=== PATIENT | male | born 1945 | race Caucasian/White ===

== ENCOUNTER 2019-02-19 04:49 | Emergency (ER) | payer MEDICARE ==
[2019-02-19 05:59] LABS: ALT (SGPT) Less than 7 U/L (8-55); AST (SGOT) 9 U/L (5-34); Albumin 3.5 g/dL (3.4-4.8); Alkaline Phosphatase 140 U/L (40-150); Anion Gap 14 mmol/L (10-20); BUN (Urea Nitrogen) 20 mg/dL (8.4-25.7); Bilirubin, Total 0.3 mg/dL (0.2-1.2); Calc. Creatinine Clearance 0 mL/min (70-130); Calcium 8.7 mg/dL (7.8-10.44); Carbon Dioxide 24 mmol/L (23-31); Chloride 98 mmol/L (98-107); Estimated GFR-MDRD 61; Globulin 3.5 g/dL (2.4-3.5); Glucose 200 mg/dL (83-110); Potassium 4.1 mmol/L (3.5-5.1); Sodium 132 mmol/L (136-145)
[2019-02-19 06:16] LABS: #Lymphocytes 2.6 thou/uL (1.20-3.40); #Monocytes 0.8 thou/uL (0.11-0.59); #Neutrophils 5.4 thou/uL (1.40-6.50); %Basophils 0.5 % (0.0-1.0); %Eosinophils 0.6 % (0.0-10.0); %Lymphocytes 29.1 % (21.0-51.0); %Monocytes 9.1 % (0.0-10.0); %Neutrophils 60.8 % (42.0-75.0); Hemoglobin 14.1 g/dL (14.0-18.0); Mean Corpuscular HGB CONC 33.6 g/dL (32.0-36.0); Mean Corpuscular Hemoglobin 27.7 pg (27.0-31.0); Mean Corpuscular Volume 82.3 fL (78.0-98.0); Mean Platelet Volume 7.4 fL (7.4-10.4); Platelet Count 318 thou/uL (130-400); RBC Distribution Width 13.2 % (11.5-14.5); Red Blood Cell (RBC) Count 5.09 mill/uL (4.70-6.10); White Blood Cell (WBC) Count 8.9 thou/uL (4.8-10.8)
[2019-02-19] MEDS ORDERED: Magnesium Citrate 300 ML BOT ONE (06:21)
--- NOTE | 2019-02-19 07:49 | RAD ---
XR Abdomen 2 View/1 View Cxr HISTORY: Constipation COMPARISON: 01/20/2013 FINDINGS: Changes of median sternotomy are again seen. The heart size is normal. The aorta is tortuou s. The lungs are well expanded without focal areas of consolidation, pneumothoraces or pleural effusions. No free air or differential fluid levels are seen. The bowel gas pattern is unremarkable. There is fe mellissa material in the colon. There are degenerative changes in the spine. No suspicious calcifications are identified.
== END 2019-02-19 06:45 | disposition home or self-care (01) ==
LOC: ERS 04:49
DX: K59.00 Constipation, unspecified (principal); E11.9 Type 2 diabetes mellitus without complications; Z79.899 Other long term (current) drug therapy
CPT/HCPCS: 74022; 80053; 85025; 93005; 96360

== ENCOUNTER 2019-04-11 13:33 | Inpatient (IN) | payer MEDICARE ==
[~2019-04-11 13:33] MED LIST: ISOVUE-370 76%-LOCM 1 ML ONE
[2019-04-11] MEDS ORDERED: Piperacillin/Tazobactam 4.5 GM VIAL ONE (14:22)
[2019-04-11] MEDS ORDERED: Sodium Chloride 0.9% 100 ML ONE (14:23)
[2019-04-11 14:27] LABS: #Basophils 0.2 thou/uL (0.0-0.2); #Lymphocytes 4.4 thou/uL (1.20-3.40); #Monocytes 0.9 thou/uL (0.11-0.59); #Neutrophils 9.2 thou/uL (1.40-6.50); %Basophils 1.5 % (0.0-1.0); %Eosinophils 0.2 % (0.0-10.0); %Lymphocytes 30.1 % (21.0-51.0); %Neutrophils 62.3 % (42.0-75.0); Hemoglobin 13.8 g/dL (14.0-18.0); Mean Corpuscular HGB CONC 33.5 g/dL (32.0-36.0); Mean Corpuscular Hemoglobin 26.6 pg (27.0-31.0); Mean Corpuscular Volume 79.4 fL (78.0-98.0); Mean Platelet Volume 7.2 fL (7.4-10.4); Platelet Count 426 thou/uL (130-400); RBC Distribution Width 14.9 % (11.5-14.5); Red Blood Cell (RBC) Count 5.17 mill/uL (4.70-6.10); White Blood Cell (WBC) Count 14.8 thou/uL (4.8-10.8)
[2019-04-11 14:39] LABS: ALT (SGPT) 7 U/L (8-55); AST (SGOT) 18 U/L (5-34); Albumin 3.5 g/dL (3.4-4.8); Alkaline Phosphatase 125 U/L (40-150); Anion Gap 19 mmol/L (10-20); BUN (Urea Nitrogen) 29 mg/dL (8.4-25.7); Bilirubin, Total 0.8 mg/dL (0.2-1.2); CK (CPK) 28 U/L (30-200); Calc. Creatinine Clearance 0 mL/min (70-130); Calcium 9.1 mg/dL (7.8-10.44); Carbon Dioxide 18 mmol/L (23-31); Chloride 93 mmol/L (98-107); Estimated GFR-MDRD 53; Globulin 3.6 g/dL (2.4-3.5); Glucose 239 mg/dL (83-110); Protein, Total 7.1 g/dL (5.8-8.1); Sodium 126 mmol/L (136-145)
[2019-04-11 14:53] LABS: CKMB 0.9 ng/mL (0-6.6)
[2019-04-11 15:00] LABS: Bilirubin Negative (Negative); Blood, Urine Trace (Negative); Clarity CLEAR (Clear); Glucose, Urine (Dipstick) Negative (Negative); Leukocyte Small (Negative); Nitrite Negative (Negative); Protein, Urine (Dipstick) Negative (Neg-Trace); Specific Gravity, Urine 1.005 (1.002-1.036); Urobilinogen 0.2 mg/dL (0.2-1.0)
[2019-04-11 15:01] LABS: Bacteria/HPF None Seen HPF (None Seen); Hyaline Casts/LPF 7-10 HYALINE CAST LPF (0-3 Hyaline); Pathc Cast-AUWi Flag 0.95 (0-2.49); RBC/HPF 0-3 HPF (0-3); Squamous Epithelial 0-3 HPF (0-3)
--- NOTE | 2019-04-11 15:19 | RAD ---
SINGLE VIEW OF THE CHEST: COMPARISON: 06/27/2012. HISTORY: Altered mental status. FINDINGS: A single view of the chest shows a normal cardiomediastinal silhouette. The patient is status post s ternotomy. There is no evidence of consolidation, mass, or pleural effusion. IMPRESSION: No evidence of acute cardiopulmonary disease. POS: [facility]
--- NOTE | 2019-04-11 15:39 | ULT ---
US Venous Doppler Bilat History: [Lower extremity edema.] Comparison: None. Findings: Real-time grayscale, color, and spectral analysis of the bilateral lower extremity venous s ystem was performed. The common femoral, femoral, proximal portions greater saphenous and deep femoral veins as well as the popliteal and posterior tibial veins were interrogated. Right lower extremity venous system has normal flow, compression, and augmentation. There is a marked ly abnormal lymph nodes of the left groin measuring up to 4.2 cm in size with abnormal hypoattenuation of the cortex. Complete absence of left groin darrell fatty hilum. There is occlusive thrombus within the left common femoral, femoral, popliteal vein. Moderate lower e xtremity edema on the left. Impression: 1. Occlusive deep venous thrombosis left lower extremity. 2. Markedly abnormal left groin lymph nodes. Lower extremity CT or MRI may be beneficial to evaluate for underlying metastatic disease.
[2019-04-11] MEDS ORDERED: Enoxaparin Sodium 80 MG/0.8 ML SYRINGE ONE (17:41)
[2019-04-11 18:34] LABS: Lactic Acid 2.4 mmol/L (0.5-2.2)
[2019-04-11 18:46] LABS: Troponin I 0.074 ng/mL (< 0.028)
[2019-04-11] MEDS ORDERED: Acetaminophen 325 MG TAB PO PRN (18:46)
[2019-04-11] MEDS ORDERED: Ondansetron PF 4 MG/2 ML Vial IVP PRN (18:46)
[2019-04-11] MEDS ORDERED: Dextrose 5% in Water 1,000 ML IV PRN (18:46)
[2019-04-11] MEDS ORDERED: Dextrose 50% Abboject 50 ML SYRINGE SLOW IVP PRN (18:46)
[2019-04-11] MEDS ORDERED: HumaLOG 300 UNITS/3 ML VIAL SC PRN (18:46)
[2019-04-11] MEDS ORDERED: cloNIDine 0.1 MG TAB PO PRN (18:46)
[2019-04-11] MEDS ORDERED: Vancomycin HCl 1 GM in Premix Bag 1 BAG IVPB SCH (21:00)
[2019-04-11] MEDS: Sodium Chloride 0.9% 1,000 ML IV SCH (21:39)
--- NOTE | 2019-04-11 21:41 | CT ---
CT THORAX WITH CONTRAST CT ABDOMEN WITH CONTRAST CT PELVIS WITH CONTRAST: DATE: 04/11/2019 HISTORY: 73-year-old male with inguinal lymphadenopathy and DVT. Possible sepsis. Possible lymphoma. TECHNIQUE: IV iodinated contrast media: Administered Oral contrast media: Not administered Single phase scans of thorax, abdomen, and pelvis. COMPARISON: 01/20/2013 FINDINGS: All of the following findings are new since the prior CT: Bulky conglomeration of matted malignant periaortic retroperitoneal lymph nodes, circumferentially co mpletely encasing the entire infrarenal abdominal aorta from slightly superior to left renal artery down into the bilateral common iliac arteries level. The circumferential periaortic component measure s 9 cm transverse x 4 cm AP x 14 cm craniocaudal. Left-sided lymphadenopathy encases and follows the left common iliac artery and vein, and the left ex ternal iliac artery and vein, until it reaches the left groin, where there is a large conglomeration of matted left inguinal lymph node mass measuring 5 x 5.5 x 9.5 cm. Some of the left matted confluence lymphadenopathy follows the left internal iliac artery and vein, i nto the left obturator internus lymph node region. The inferior vena cava is also encased by the retroperitoneal tumor. It is not opacified with IV cont rast. It is uncertain whether this is not opacification represents unopacified blood or complete thrombosis. There is mixed opacified and unopacified material involving the intrahepatic segment of t he inferior vena cava. The left-sided retroperitoneal and periaortic tumor apparently obstructs the left ureter, because the re is a new finding of moderate dilation of the left renal pelvis and left calyces. There is an irregularly-shaped 7 x 6 x 4 mm calculus in the posterior, dependent portion of the dilated left extr arenal pelvis. This is currently not causing obstruction, but could potentially produce a future. No major pathology of liver, adrenals, pancreas, or spleen. Lui catheter within a collapsed urinary bladder that has diffuse mural thickening and mural edema. Soft tissue edema, anasarca, in the subcutaneous fat superficial to the left hip, extending into the left flank. No ascites, small bowel dilation, colonic diverticulitis, or pneumoperitoneum. No destructive osseous lesion identified. IMPRESSION: 1) malignant, bulky, confluent, matted lymphadenopathy involving circumaortic retroperitoneal tumor m ass extending into left iliac chain lymphadenopathy tumor mass extending into left inguinal lymphadenopathy tumor mass. One possibility is lymphoma. 2) this is apparently occluding the left iliac veins. Uncertain whether inferior vena cava is also th rombosed and occluded. 3) this is causing left obstructive uropathy: Moderate left hydronephrosis. 4) unrelated to this, there is a 7 mm calculus which is currently not obstructing, within the dilated left renal pelvis.
[2019-04-11] MEDS: Famotidine 20 MG TAB PO SCH (21:44)
[2019-04-11 22:28] LABS: Troponin I 0.081 ng/mL (< 0.028)
[2019-04-11] MEDS: Piperacillin/Tazobactam 3.375 GM in Sodium Chloride 0.9% 100 ML IVPB SCH (23:55)
--- NOTE | 2019-04-12 00:16 | HP ---
PRIMARY CARE PHYSICIAN: The patient does not have a primary care physician. CHIEF COMPLAINT: Altered mental status. HISTORY OF PRESENT ILLNESS: Mr. Mcdermott is a 73-year-old gentleman, who has a history of coronary artery disease and hypertension. The history is taken from the patient's son who is at the bedside about half of it and the remaining half is taken from the patient himself. His son starts off by telling me that his father has had a slow decline ever since 2012. It started about 6 months after he had bypass surgery and it seems after that he basically just shut down. He stopped driving and shortly after that he even stopped bathing. The children bought him a condo and made sure that he had food delivered to them either by themselves or by other family and his son would come in once a week to bathe him and check on him. He says that on Sunday, he came to check on him recently and noticed that his pants were soaked in urine and he was sitting in the chair and was basically indifferent. They also say that he has basically lost his appetite and stopped eating. They said that he also has developed bedsores as well. The patient himself says that he basically wants to . He says that he is not suicidal, but says that he has basically lost the ability to do everything that he was interested in. He even tells me multiple times to just pray for him to tonight. He says that he also has had a little bit of shortness of breath off and on. He denies having any pain when he swallows. He says he does get full faster. When asked about the swelling in his left leg, he says it is about the same as it always has been. He denies having any pain in the legs. He denies any chest pain. He denies any fevers, chills. He also says he has had some constipation, but no blood in the stools or hematemesis. REVIEW OF SYSTEMS: CONSTITUTIONAL: There have been no fevers or chills, no night sweats. He has had some 15-pound weight loss and decreased appetite. HEENT: He denies any headache. No dizziness. No visual changes. No sore throat, rhinorrhea, neck pain. No adenopathy. PULMONARY: No hemoptysis. No cough. No wheezing. CARDIOVASCULAR: He denies any chest pain. He has had some dyspnea off and on, but he says it has been stable. No wheezing. No PND. No orthopnea. GASTROINTESTINAL: No abdominal pain. No nausea. No vomiting. He does admit to early satiety. He has had some constipation in the last few days. GENITOURINARY: He admits to loss of urinary control and says that when he feels the urge to go, he has only seconds and then it will just go. There is no dysuria. No hematuria. MUSCULOSKELETAL: He says his legs have given out, he cannot even remember when. He denies any leg pain, but has swelling in the left lower extremity. SKIN AND INTEGUMENT: He denies any skin changes. No rash. PSYCHIATRIC: The patient says that he just basically wants to . He says he is not suicidal. He says he has no ability to do what he used to do. When asked, he does not want to be on antidepressant medications and says that this is not depression. He says that he just does not want to live like this anymore. PAST MEDICAL HISTORY: Significant for coronary artery disease, hypertension, and diabetes mellitus type 2. PAST SURGICAL HISTORY: He has had bypass surgery back in 2011, hemorrhoidectomy. ALLERGIES: TALWIN (PENTAZOCINE). SOCIAL HISTORY: He is . He is a nonsmoker and nondrinker. His son, Howie, is his surrogate medical decision maker. He would not want to be resuscitated. He wants to be a DNR. FAMILY HISTORY: No history of any heritable diseases. MEDICATIONS: None. PHYSICAL EXAMINATION: GENERAL: He is alert and oriented. He is in no acute distress. He is a bit cachectic with some temporal muscle wasting and chronically ill in appearance. VITAL SIGNS: His blood pressure 127/92, heart rate 105, respiratory rate of 26, temperature is 98. HEENT: Pupils are equal, round, and reactive. Extraocular muscles are intact. His sclerae are anicteric. His tympanic membranes are fairly ly. There is no fluid behind the drums. No redness. He does have some again temporal muscle wasting. Throat, he has poor dentition. There is no erythema. NECK: There is no adenopathy, but he did have a bruit on the right. Pulmonary: He has no wheezing, no rales, no rhonchi, and good breath sounds bilaterally. CARDIOVASCULAR: He has a normal S1, S2. He has an intermittent S3 gallop as well as a soft diastolic murmur heard at the base as well as along the upper left sternal border. ABDOMEN: Obese. It is soft. It is nontender, nondistended. Positive for bowel sounds. No rebound. No guarding. No appreciable organomegaly. EXTREMITIES: He has extensive edema up to the groin on the left lower extremity. He has also fairly large lymph nodes in both the left and the right groin as well as some chronic venous stasis changes. NEUROLOGIC: He is moving all of his extremities. SKIN AND INTEGUMENT: He has some mycotic nails as well as some scaling of the skin bilaterally and also has a decubitus on the buttocks which is reported to be a stage II. LABORATORY DATA: White blood cell count 14.8, hemoglobin 13.8, hematocrit is 41, platelet count is 426. His sodium is 126, potassium 4.0, chloride is 93, CO2 is 18, BUN of 29, creatinine 1.32, glucose is 239. Lactic acid is 4.8. Troponin is 0.040. Urinalysis was essentially negative. He had a venogram which showed a deep vein thrombosis in the left. He had a chest x-ray, which was positive for some mild cardiomegaly. Sternal wires are appreciable, but no pulmonary infiltrates or effusions and this is by my reading. ASSESSMENT: This is a pleasant 73-year-old gentleman, who essentially has failure to thrive, but was found to have a deep venous thrombosis as well as evidence for sepsis, as well as hyponatremia and inguinal adenopathy. 1. For deep vein thrombosis, he has already been given a dose of Lovenox. This will need to be dosed for his renal insufficiency. We will also consider getting either a CT scan in the a.m. if his renal function improves or V/Q scan to determine if he has a pulmonary embolus as well. 2. Sepsis. He meets criteria with elevated white blood cell count and tachycardia as well as an elevated lactic acid. He will be placed on empiric antibiotics and it is suspected that the decubitus could be the source. 3. Hyponatremia. I suspect this is due to poor oral intake and dehydration. He will be started on IV hydration and if this does not improve, then we will get urine and serum osmolality to help to differentiate the cause. 4. Inguinal adenopathy. We will follow up with a CT scan of the abdomen. This will need to be noncontrast to see if he has any bulky abdominal or pelvic adenopathy and further recommendations to follow. These may be superficial enough to be safely biopsied possibly by General Surgery. 5. Diabetes mellitus. He will be placed on a sliding scale insulin for this. 6. Abnormal heart murmur and history of coronary artery disease. We will get an echocardiogram to help assess this. Further recommendations to follow. Job ID: [id number]
[2019-04-12 01:38] LABS: #Basophils 0.1 thou/uL (0.0-0.2); #Eosinphils 0.1 thou/uL (0.0-0.7); #Lymphocytes 3.5 thou/uL (1.20-3.40); #Neutrophils 8.2 thou/uL (1.40-6.50); %Basophils 1.1 % (0.0-1.0); %Eosinophils 0.4 % (0.0-10.0); %Lymphocytes 27.5 % (21.0-51.0); %Monocytes 7.4 % (0.0-10.0); %Neutrophils 63.6 % (42.0-75.0); Hemoglobin 13.7 g/dL (14.0-18.0); Mean Corpuscular HGB CONC 33.8 g/dL (32.0-36.0); Mean Corpuscular Hemoglobin 26.7 pg (27.0-31.0); Platelet Count 351 thou/uL (130-400); Red Blood Cell (RBC) Count 5.11 mill/uL (4.70-6.10); White Blood Cell (WBC) Count 12.8 thou/uL (4.8-10.8)
[2019-04-12 02:26] LABS: Lactic Acid 3.8 mmol/L (0.5-2.2)
[2019-04-12 02:39] LABS: Anion Gap 20 mmol/L (10-20); BUN (Urea Nitrogen) 20 mg/dL (8.4-25.7); Calc. Creatinine Clearance 69 mL/min (70-130); Calcium 8.8 mg/dL (7.8-10.44); Carbon Dioxide 18 mmol/L (23-31); Chloride 101 mmol/L (98-107); Estimated GFR-MDRD 73; Glucose 134 mg/dL (83-110); Potassium 3.6 mmol/L (3.5-5.1); Sodium 135 mmol/L (136-145)
[2019-04-12] MEDS: Piperacillin/Tazobactam 3.375 GM in Sodium Chloride 0.9% 100 ML IVPB SCH ×4 (05:45→23:12)
[2019-04-12] MEDS ORDERED: Enoxaparin Sodium 80 MG/0.8 ML SYRINGE SC SCH (09:00)
[2019-04-12] MEDS ORDERED: Boudreaux's Butt Paste 16% Oin 30 GM TUBE TOP PRN (09:42)
[2019-04-12] MEDS ORDERED: Boudreaux's Butt Paste 60 GM TUBE TOP PRN (10:00)
[2019-04-12] MEDS: Sodium Chloride 0.9% 1,000 ML IV SCH ×2 (10:06→23:13)
[2019-04-12] MEDS: Famotidine 20 MG TAB PO SCH ×2 (10:07→20:45)
[2019-04-12] MEDS ORDERED: Vancomycin HCl 1 GM in Premix Bag 1 BAG IVPB SCH (16:00)
[2019-04-12] MEDS ORDERED: CEFAZOLIN 2 GM in Premix Bag 1 BAG IVPB SCH (17:00)
--- NOTE | 2019-04-12 17:04 | PDOC.PN ---
- Subjective Encounter Start Date: 04/12/19 Encounter Start Time: 14:00 Mr. Mcdermott was seen today in follow-up of DVT, and adenopathy. He does not have any complaints other than he had an incomplete bowel movement. - Objective Resuscitation Status - Order Detail: 04/11/19 18:13 Resuscitation Status Routine Resuscitation Status: DNAR: NO Resuscitation Discussed with: discussed with the patient MAR Reviewed: Yes Vital Signs & Weight: Vital Signs (12 hours) Temp Pulse Resp BP Pulse Ox 04/12/19 15:52 97.6 F 111 H 18 130/79 97 04/12/19 12:10 98.6 F 99 18 115/62 98 04/12/19 08:50 98.3 F 82 18 131/74 97 Weight Admit Weight 162 lb 11.2 oz Weight 164 lb 3.2 oz I&O: 04/11/19 04/12/19 04/13/19 06:59 06:59 06:59 Intake Total 1445 240 Output Total 1800 600 Balance -355 -360 Result Diagrams: 04/12/19 00:58 04/12/19 00:58 Additional Labs: Accuchecks 04/12/19 04/12/19 04/12/19 16:43 10:50 05:30 POC Glucose 226 H 181 H 126 H 04/11/19 20:40 POC Glucose 144 H Phys Exam - Physical Examination HEENT: PERRLA Respiratory: no wheezing, no rales, no rhonchi, clear to auscultation bilateral Cardiovascular: RRR, no significant murmur, no rub Gastrointestinal: soft, non-tender, no distention, positive bowel sounds Musculoskeletal: pulses present, edema present + massive edema of the left lower edema Dx/Plan (1) Deep vein thrombosis (DVT) of left lower extremity Code(s): I82.402 - ACUTE EMBOLISM AND THOMBOS UNSP DEEP VEINS OF L LOW EXTREM Status: Acute (2) Inguinal adenopathy Code(s): R59.0 - LOCALIZED ENLARGED LYMPH NODES Status: Acute (3) Diabetes mellitus type 2 in nonobese Code(s): E11.9 - TYPE 2 DIABETES MELLITUS WITHOUT COMPLICATIONS Status: Acute (4) Sepsis Code(s): A41.9 - SEPSIS, UNSPECIFIED ORGANISM Status: Acute (5) Hyponatremia Code(s): E87.1 - HYPO-OSMOLALITY AND HYPONATREMIA Status: Acute - Plan * DVT- continue Lovenox * Sepsis- likely as a result of the decubitus in his gluteal area- continue Vancomycin and Zosyn * Hyponatremia- improved with hydration * DM- will continue SSI * Inguinal adenopathy- the resultsof the CT scan was noted- This was discussed with the patient and the patient's son at length. In order to be able to make an informed decision regarding treatment, the patient would like to proceed with obtaining a biopsy. Will consult General Surgery * Depression- the patient has refused medication, and says he is not depressed. .
--- NOTE | 2019-04-12 18:01 | CON ---
DATE OF CONSULTATION: HISTORY OF PRESENT ILLNESS: Emile Mcdermott is a 73-year-old DNR patient, whose is . He was admitted to the Hospitalist Service on 04/11/2019 yesterday, with complaints of altered mental status. He is found to have diffuse lymphadenopathy, deep venous thrombosis, hyponatremia. He underwent a CAT scan of the abdomen and pelvis yesterday noting lymphadenopathy including around the retroperitoneal tumor mass, iliac lymphadenopathy, extending to the left inguinal canal. He has an obstructive left uropathy from this. Left renal calculus. ALLERGIES: TALWIN. SOCIAL HISTORY: Tobacco, none. Alcohol, rarely. MEDICATIONS: None known. PAST SURGICAL HISTORY: Hemorrhoidectomy. PAST MEDICAL HISTORY: Discovered to have slightly elevated glucose on admission, obstructive uropathy and lymphadenopathy. He is a DNR. PHYSICAL EXAMINATION: VITAL SIGNS: Height 5 feet 7 inches, 164 pounds, BMI 25, 97.6, 111, 18, 130/79. HEAD, EARS, EYES, NOSE AND THROAT: Unremarkable. LUNGS: Clear to auscultation. CARDIAC: Regular rate and rhythm without murmur or gallop. ABDOMEN: Soft. He has a left axillary node. He has nodes in both his left and right groins, larger seems in his right groin. EXTREMITIES: Unremarkable. LABORATORY DATA: Sodium 135, potassium 3.6, glucose 134. White count 12.8, hemoglobin 13. ASSESSMENT: Lymphadenopathy. PLAN: 1. Excisional biopsy, right or left groin node, Sunday. He understands risks and benefits, consents. 2. Obstructive uropathy. Job ID: [id number]
[2019-04-12] MEDS: HumaLOG 300 UNITS/3 ML VIAL SC PRN (18:07)
[2019-04-12] MEDS: Enoxaparin Sodium 80 MG/0.8 ML SYRINGE SC SCH (20:45)
[2019-04-13] MEDS: Piperacillin/Tazobactam 3.375 GM in Sodium Chloride 0.9% 100 ML IVPB SCH ×3 (05:09→19:30)
[2019-04-13] MEDS: Famotidine 20 MG TAB PO SCH ×2 (09:04→20:44)
[2019-04-13] MEDS: Enoxaparin Sodium 80 MG/0.8 ML SYRINGE SC SCH ×2 (09:05→20:45)
[2019-04-13] MEDS: Boudreaux's Butt Paste 60 GM TUBE TOP SCH (09:06)
[2019-04-13] MEDS: Sodium Chloride 0.9% 1,000 ML IV SCH (12:52)
--- NOTE | 2019-04-13 13:45 | PDOC.PN ---
- Subjective Encounter Start Date: 04/13/19 Encounter Start Time: 13:42 Mr. Mcdermott was seen today in follow-up of DVT and Probable lymphoma. He does not have any new complaints this afternoon. - Objective Resuscitation Status - Order Detail: 04/11/19 18:13 Resuscitation Status Routine Resuscitation Status: DNAR: NO Resuscitation Discussed with: discussed with the patient MAR Reviewed: Yes Vital Signs & Weight: Vital Signs (12 hours) Temp Pulse Resp BP Pulse Ox 04/13/19 12:55 98.9 F 100 18 134/65 97 04/13/19 08:50 97.8 F 97 18 124/79 96 04/13/19 03:41 98.5 F 102 H 20 111/69 100 Weight Admit Weight 162 lb 11.2 oz Weight 170 lb 6.4 oz I&O: 04/12/19 04/13/19 04/14/19 06:59 06:59 06:59 Intake Total 1445 3970 720 Output Total 1800 2025 Balance -355 1945 720 Result Diagrams: 04/12/19 00:58 04/12/19 00:58 Additional Labs: Accuchecks 04/13/19 04/12/19 04/12/19 05:26 20:57 16:43 POC Glucose 113 H 125 H 226 H Phys Exam - Physical Examination HEENT: PERRLA Respiratory: no wheezing, no rales, no rhonchi, clear to auscultation bilateral Cardiovascular: RRR, no significant murmur, no rub Gastrointestinal: soft, non-tender, no distention, positive bowel sounds Musculoskeletal: pulses present, edema present + massive edema of the left lower extremity Dx/Plan (1) Deep vein thrombosis (DVT) of left lower extremity Code(s): I82.402 - ACUTE EMBOLISM AND THOMBOS UNSP DEEP VEINS OF L LOW EXTREM Status: Acute (2) Inguinal adenopathy Code(s): R59.0 - LOCALIZED ENLARGED LYMPH NODES Status: Acute (3) Diabetes mellitus type 2 in nonobese Code(s): E11.9 - TYPE 2 DIABETES MELLITUS WITHOUT COMPLICATIONS Status: Acute (4) Sepsis Code(s): A41.9 - SEPSIS, UNSPECIFIED ORGANISM Status: Acute (5) Hyponatremia Code(s): E87.1 - HYPO-OSMOLALITY AND HYPONATREMIA Status: Acute - Plan * DVT- will change to Eliquis * Patient was found to have severe systolic heart failure by Echo- this was discussed with the patient * He has decided to forego the biopsy, and opt for palliative care only * Will consult Palliative care and hospice
[2019-04-13 15:35] LABS: Vancomycin, Trough 10.1 ug/mL
[2019-04-13] MEDS ORDERED: Vancomycin HCl 1.5 GM in Sodium Chloride 0.9% 250 ML 300 ML IVPB SCH (16:00)
--- NOTE | 2019-04-13 17:45 | PDOC.EVN ---
Event Note - Event Note Event Note: After I saw Mr. Mcdermott and explained the results of his ECHO he made it known that he is not happy with his son's decision to proceed with aggressive care. He said he felt like all the healthcare providers are not " hearing him". He says that he just wants to leave the hospital, but knows that since he can not walk he cant do it, but if he was able to get up and walk he would be " out the door". I spoke with both of his sons, and discussed his prognosis. Now that it has been discovered that he has severe systolic heart failure, the patient has decided not to proceed with the lymph node biopsy, and he would like comfort measures only. His sons are also in agreement. Will consult palliative care and hospice. APC 30 minutes.
[2019-04-14] MEDS ORDERED: Piperacillin/Tazobactam 4.5 GM VIAL ONE (01:12)
[2019-04-14] MEDS: Piperacillin/Tazobactam 3.375 GM in Sodium Chloride 0.9% 100 ML IVPB SCH ×2 (01:16→05:17)
[2019-04-14] MEDS ORDERED: Sodium Chloride 0.9% 10 ML ONE (08:10)
[2019-04-14] MEDS: Ondansetron ODT 4 MG TAB PO PRN ×2 (08:32→16:48)
[2019-04-14] MEDS: HYDROcodone/Acetaminophen 5/325 mg Tablet PO PRN ×2 (08:34→16:49)
[2019-04-14] MEDS: Carvedilol 3.125 MG TAB PO SCH ×2 (08:36→16:48)
[2019-04-14] MEDS: Amoxicillin/Potassium Clav 875 MG TAB PO SCH ×2 (08:36→20:52)
[2019-04-14] MEDS: Apixaban 5 MG TAB PO SCH ×2 (08:37→20:52)
[2019-04-14] MEDS: Famotidine 20 MG TAB PO SCH ×2 (08:37→20:52)
[2019-04-14] MEDS: HumaLOG 300 UNITS/3 ML VIAL SC PRN ×2 (08:38→12:01)
[2019-04-14] MEDS: Boudreaux's Butt Paste 60 GM TUBE TOP SCH (09:22)
--- NOTE | 2019-04-14 10:46 | PQF ---
MIRIAM DORSEY TONI MD [id number] CLINICAL DOCUMENTATION IMPROVEMENT CLARIFICATION FORM: ICD-10 Updated PLEASE DO AN ADDENDUM TO THE PROGRESS NOTE WITH ANY DOCUMENTATION UPDATES OR ADDITIONS AND CARRY THROUGH TO DC SUMMARY. THANK YOU. DATE: 04/14 ATTN: DR. CELESTINO BUNN Please exercise your independent, professional judgment in responding to the clarification form. Clinical indicators are provided on the bottom of this form for your review. Please check appropriate box(s): AMI TYPE: [ ] NSTEMI (OR type I) [ X ] NSTEMI due to Demand Ischemia (AMI Type II) [ ] Demand Ischemia without OR [ ] Other diagnosis [ ] Unable to determine In addition, please specify: Present on Admission (POA): [ X ] Yes [ ] No [ ] Unable to determine CLINICAL INDICATORS - SIGNS / SYMPTOMS / LABS TROPONIN I: 0.040, 0.074, 0.081 (04/11) RISKS: SEPSIS (ER, H&P) SEVERE SYSTOLIC HEART FAILURE (PN 04/13) LLE DVT (ER, H&P) TREATMENT: ECHO (04/12) SERIAL CARDIAC ENZYMES (04/11) IV ANTIBIOTICS (ZOSYN 04/11 - ; VANCOMYCIN 04/11 & ) THANK YOU! Tawnya (This form is maintained as a part of the permanent medical record) 2014 [employer]. All Rights Reserved Tawnya Orta RN, BSN [email or web address] Office: [phone] [facility]
--- NOTE | 2019-04-14 10:47 | PDOC.PN ---
- Subjective Encounter Start Date: 04/14/19 Encounter Start Time: 10:45 Mr. Mcdermott was seen today in follow-up of DVT and CHF and probable Lymphoma. He does not have any new complaints. His appetite has improved. - Objective Resuscitation Status - Order Detail: 04/11/19 18:13 Resuscitation Status Routine Resuscitation Status: DNAR: NO Resuscitation Discussed with: discussed with the patient MAR Reviewed: Yes Vital Signs & Weight: Vital Signs (12 hours) Temp Pulse Resp BP Pulse Ox 04/14/19 08:28 98.0 F 108 H 20 130/80 95 04/14/19 04:00 99 F 117 H 20 118/78 96 04/14/19 03:30 99.0 F 117 H 20 118/78 96 Weight Admit Weight 162 lb 11.2 oz Weight 174 lb 12.8 oz I&O: 04/13/19 04/14/19 04/15/19 06:59 06:59 06:59 Intake Total 3970 2060 Output Total 2025 600 Balance 1945 1460 Result Diagrams: 04/12/19 00:58 04/12/19 00:58 Additional Labs: Accuchecks 04/14/19 04/13/19 04/13/19 05:42 20:11 16:44 POC Glucose 304 H 176 H 146 H 04/13/19 10:36 POC Glucose 183 H Phys Exam - Physical Examination HEENT: PERRLA Respiratory: no wheezing, no rales, no rhonchi, clear to auscultation bilateral Cardiovascular: RRR, no significant murmur, no rub Gastrointestinal: soft, non-tender, no distention, positive bowel sounds Musculoskeletal: pulses present, edema present + massive edema in the left lower extremity Neurological: non-focal Dx/Plan (1) Deep vein thrombosis (DVT) of left lower extremity Code(s): I82.402 - ACUTE EMBOLISM AND THOMBOS UNSP DEEP VEINS OF L LOW EXTREM Status: Acute (2) Inguinal adenopathy Code(s): R59.0 - LOCALIZED ENLARGED LYMPH NODES Status: Acute (3) Diabetes mellitus type 2 in nonobese Code(s): E11.9 - TYPE 2 DIABETES MELLITUS WITHOUT COMPLICATIONS Status: Acute (4) Sepsis Code(s): A41.9 - SEPSIS, UNSPECIFIED ORGANISM Status: Acute (5) Hyponatremia Code(s): E87.1 - HYPO-OSMOLALITY AND HYPONATREMIA Status: Acute - Plan * DVT of the left lower extremity- will change him over to Eliquis * Newly diagnosed Systolic heart failure- will add a low dose beta-david, and if tolerated a low dose CARL-I * Probable Lymphoma- he decided to forego treatment, therefore the biopsy has been cancelled * Awaiting Palliative Care and Hospice Consults .
--- NOTE | 2019-04-14 10:51 | PQF ---
MIRIAM DORSEY TONI MD [id number] [facility]-[id number] CLINICAL DOCUMENTATION IMPROVEMENT CLARIFICATION FORM: ICD-10 Updated PLEASE DO AN ADDENDUM TO THE PROGRESS NOTE WITH ANY DOCUMENTATION UPDATES OR ADDITIONS AND CARRY THROUGH TO DC SUMMARY. THANK YOU. DATE: 04/14 ATTN: DR. CELESTINO BUNN Please exercise your independent, professional judgment in responding to the clarification form. Clinical indicators are provided on the bottom of this form for your review. Please check appropriate box(s): [ ] Acute Renal Failure (ARF) / Acute Kidney Injury (KEIRA) [ X] Acute on Chronic Renal Failure please specify Stage of CKD (see below) [ ] CKD without ARF/KEIRA please specify Stage of CKD [ ] Other diagnosis [ ] Unable to determine In addition, please specify: Present on Admission (POA): [ X] Yes [ ] No [ ] Unable to determine National Kidney Foundation Guidelines for CKD Staging Stage I Kidney damage with normal or increased GFR GFR > 90 Stage II Kidney damage with mildly decreased GFR GFR 60-89 Stage III Kidney damage with moderately decreased GFR GFR 30-59 Stage IV Kidney damage with severely decreased GFR GFR 16-29 Stage V Kidney failure GFR<15 ESRD End Stage Renal Disease On dialysis For continuity of documentation, please document condition throughout progress notes and discharge summary. Thank You. CLINICAL INDICATORS - SIGNS / SYMPTOMS / LABS BUN: 29 CR: 1.32 GFR: 53 (6/7) 20 1.00 73 (6/8) RISKS: SEPSIS (ER, H&P) HYPONATREMIA (ER, H&P) UTI (ER) TREATMENT: IVF (1.5L NS IN ER /7) IV ANTIBIOTICS (ZOSYN 04/11 - 10; VANCOMYCIN 6/7 &9) THANK YOU! Tawnya (This form is maintained as a part of the permanent medical record) 2014 [employer]. All Rights Reserved Tawnya Orta RN, BSN [email or web address] Office: [phone] [facility]
--- NOTE | 2019-04-14 16:21 | PDOC.PALPN ---
Palliative Progress Note - Subjective Patient is a 73 year old male who is chronically ill, upon recent hospitalization is identified to have probable lymphoma however patient has elected to forgo biopsy and further treatment and seeking palliative care/ hospice. Patient states he has no quality of life, and is "ready to go and wishes he would have passed in his sleep". - Objective Vital Signs: Vital Signs - Most Recent Temp Pulse Resp BP Pulse Ox 98.4 F 78 18 113/76 98 04/14/19 11:55 04/14/19 11:55 04/14/19 11:55 04/14/19 11:55 04/14/19 11:55 - Physical Exam Constitutional: confusion Deviation from normal: patient oriented, however in relaying history in life review becomes confus HEENT: PERRLA Respiratory: clear to auscultation bilateral Deviation from normal: Slight breathlessness noted with extensive conversation Cardiovascular: irregular Deviation from normal: murmur Gastrointestinal: soft, non-tender, positive bowel sounds Deviation from normal: pronounced edema to left lower extremity Deviation from normal: delayed cap refill >4 seconds - Assessment (1) Constipation Code(s): K59.00 - CONSTIPATION, UNSPECIFIED Current Visit: Yes Status: Acute Qualifiers: Constipation type: unspecified constipation type Qualified Code(s): K59.00 - Constipation, unspecified Comment: most likely related to pain medication and limited mobility. - Plan Plan: *Colace 100mg po BID *Patient depressed, medication management discussed. Will follow up 04/15/19 *Pavel Walsh RNclinical recruiter Team to reach out to Volunteer to have someone come visit patient and provide therapeutic listening. [40] minutes spent on this encounter with >50% of the time in counseling and coordination of care.
[2019-04-14] MEDS: Docusate 100 MG CAP PO SCH (20:52)
[2019-04-15] MEDS: HYDROcodone/Acetaminophen 5/325 mg Tablet PO PRN ×3 (02:28→20:04)
[2019-04-15 06:55] LABS: Hemoglobin 12.1 g/dL (14.0-18.0); Platelet Count 331 thou/uL (130-400)
[2019-04-15] MEDS ORDERED: Sodium Chloride 0.9% 10 ML ONE (07:32)
[2019-04-15] MEDS: Amoxicillin/Potassium Clav 875 MG TAB PO SCH ×2 (08:44→20:03)
[2019-04-15] MEDS: Docusate 100 MG CAP PO SCH ×2 (08:44→20:03)
[2019-04-15] MEDS: Carvedilol 3.125 MG TAB PO SCH ×2 (08:44→16:29)
[2019-04-15] MEDS: Famotidine 20 MG TAB PO SCH ×2 (08:44→20:03)
[2019-04-15] MEDS: Boudreaux's Butt Paste 60 GM TUBE TOP SCH (08:45)
[2019-04-15] MEDS: Apixaban 5 MG TAB PO SCH ×2 (08:46→20:03)
[2019-04-15] MEDS: HumaLOG 300 UNITS/3 ML VIAL SC PRN (11:06)
[2019-04-15] MEDS ORDERED: traZODone HCl 50 MG TAB PO PRN (11:30)
--- NOTE | 2019-04-15 11:30 | PDOC.PN ---
- Subjective Encounter Start Date: 04/15/19 Encounter Start Time: 11:40 Mr. Mcdermott was seen today in follow-up of DVT, and Probable Lymphoma, and CHF. He does not have any complaints. He continues to ask that we pray he dies tonight. He is still refusing antidepressants, but will agree to a sleep aid medication - Objective Resuscitation Status - Order Detail: 04/11/19 18:13 Resuscitation Status Routine Resuscitation Status: DNAR: NO Resuscitation Discussed with: discussed with the patient MAR Reviewed: Yes Vital Signs & Weight: Vital Signs (12 hours) Temp Pulse Resp BP BP Pulse Ox 04/15/19 11:01 98.2 F 90 18 93/50 L 96 04/15/19 07:40 97.7 F 91 18 144/65 H 98 04/15/19 03:40 98.3 F 86 18 109/62 94 L Weight Admit Weight 162 lb 11.2 oz Weight 177 lb I&O: 04/14/19 04/15/19 04/16/19 06:59 06:59 06:59 Intake Total 2060 1080 Output Total 600 1100 Balance 1460 -20 Result Diagrams: 04/15/19 06:10 04/15/19 06:10 Additional Labs: Accuchecks 04/15/19 04/15/19 04/14/19 10:54 05:41 20:13 POC Glucose 214 H 134 H 130 H 04/14/19 16:50 POC Glucose 122 H Phys Exam - Physical Examination HEENT: PERRLA Respiratory: no wheezing, no rales, no rhonchi, clear to auscultation bilateral Cardiovascular: RRR, no significant murmur, no rub Gastrointestinal: soft, non-tender, no distention, positive bowel sounds Musculoskeletal: pulses present, edema present + massive edema of the left lower extemity Dx/Plan (1) Deep vein thrombosis (DVT) of left lower extremity Code(s): I82.402 - ACUTE EMBOLISM AND THOMBOS UNSP DEEP VEINS OF L LOW EXTREM Status: Acute (2) Inguinal adenopathy Code(s): R59.0 - LOCALIZED ENLARGED LYMPH NODES Status: Acute (3) Diabetes mellitus type 2 in nonobese Code(s): E11.9 - TYPE 2 DIABETES MELLITUS WITHOUT COMPLICATIONS Status: Acute (4) Sepsis Code(s): A41.9 - SEPSIS, UNSPECIFIED ORGANISM Status: Acute (5) Hyponatremia Code(s): E87.1 - HYPO-OSMOLALITY AND HYPONATREMIA Status: Acute - Plan * DVT- continue Eliquis * CHF-.will continue Carvediolol, his blood pressure is too low to add an CARL-I. 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
[2019-04-15] MEDS: Ondansetron ODT 4 MG TAB PO PRN (12:01)
[2019-04-16] MEDS: Amoxicillin/Potassium Clav 875 MG TAB PO SCH ×2 (08:49→21:14)
[2019-04-16] MEDS: Famotidine 20 MG TAB PO SCH ×2 (08:50→21:14)
[2019-04-16] MEDS: Docusate 100 MG CAP PO SCH ×2 (08:50→21:14)
[2019-04-16] MEDS: Apixaban 5 MG TAB PO SCH ×2 (08:50→21:14)
[2019-04-16] MEDS: Carvedilol 3.125 MG TAB PO SCH ×2 (08:50→16:25)
[2019-04-16] MEDS: Boudreaux's Butt Paste 60 GM TUBE TOP SCH (08:52)
[2019-04-16 12:36] VITALS: BMI 27.5
--- NOTE | 2019-04-16 14:11 | PDOC.PN ---
- Subjective Encounter Start Date: 04/16/19 Encounter Start Time: 14:00 Subjective: f/u for decuitus ulcer, suspected lymphoma, DVT LLE on Eliquis. Still -: stating he would rather . Appetite ok and tolerating Glucerna. - Objective Resuscitation Status - Order Detail: 04/11/19 18:13 Resuscitation Status Routine Resuscitation Status: DNAR: NO Resuscitation Discussed with: discussed with the patient MAR Reviewed: Yes Vital Signs & Weight: Vital Signs (12 hours) Temp Pulse Pulse Resp BP BP Pulse Ox 04/16/19 11:27 90 144/81 H 04/16/19 08:00 98.1 F 91 14 136/80 96 04/16/19 04:00 98.5 F 89 14 133/76 100 Weight Admit Weight 162 lb 11.2 oz Weight 175 lb 9.6 oz I&O: 04/15/19 04/16/19 04/17/19 06:59 06:59 06:59 Intake Total 1080 550 Output Total 1100 1200 Balance -20 -650 Result Diagrams: 04/15/19 06:10 04/15/19 06:10 Additional Labs: Accuchecks 04/16/19 04/16/19 04/15/19 11:08 05:34 20:46 POC Glucose 107 109 151 H 04/15/19 16:48 POC Glucose 148 H Microbiology 04/11/19 14:10 Urine voided Urine Culture - Final 04/11/19 13:52 Venous blood - Left Arm Blood Culture - Preliminary NO GROWTH AT 48 HOURS 04/11/19 13:43 Venous blood - Left Arm Blood Culture - Preliminary NO GROWTH AT 48 HOURS Radiology Reviewed by me: Yes (LE doppler - +DVT LLE) EKG Reviewed by me: Yes (Tele - SR) Phys Exam - Physical Examination Constitutional: NAD alert, responsive, flat affect HEENT: PERRLA, sclera anicteric, oral pharynx no lesions Neck: no nodes, no JVD, supple, full ROM Respiratory: no wheezing, no rales, no rhonchi, clear to auscultation bilateral S1, S2 Cardiovascular: RRR, no significant murmur, no rub, gallop mild TTP in mid-epigastric region Gastrointestinal: soft, no distention, positive bowel sounds LLE edema, + adenopathy Musculoskeletal: pulses present, edema present Neurological: normal sensation, moves all 4 limbs Psychiatric: A&O x 3 Skin: normal turgor, cap refill <2 seconds Dx/Plan (1) Deep vein thrombosis (DVT) of left lower extremity Code(s): I82.402 - ACUTE EMBOLISM AND THOMBOS UNSP DEEP VEINS OF L LOW EXTREM Status: Acute Comment: Continue Eliquis 5mg BID (2) Decubitus ulcer, buttock Code(s): L89.309 - PRESSURE ULCER OF UNSPECIFIED BUTTOCK, UNSPECIFIED STAGE Status: Acute Comment: Continue turning protocol, local care, Augmentin, WCT and barrier therapy (3) Inguinal adenopathy Code(s): R59.0 - LOCALIZED ENLARGED LYMPH NODES Status: Acute Comment: Suspected lymphoma however pt does not wish to pursue any further evaluation, bx or work up (4) Sepsis Code(s): A41.9 - SEPSIS, UNSPECIFIED ORGANISM Status: Acute Comment: Stabilizing, continue Augmentin (5) Diabetes mellitus type 2 in nonobese Code(s): E11.9 - TYPE 2 DIABETES MELLITUS WITHOUT COMPLICATIONS Status: Chronic - Plan continue antibiotics, geriatric social worker Stable currently -: Continue Augmentin -: Continue WCT with local care -: CM for SNF options -: Likely d/c in 24h to SNF with palliative care/hospice * .
[2019-04-17 04:40] LABS: Hemoglobin 11.6 g/dL (14.0-18.0); Platelet Count 352 thou/uL (130-400)
[2019-04-17] MEDS: Docusate 100 MG CAP PO SCH (08:42)
[2019-04-17] MEDS: Famotidine 20 MG TAB PO SCH (08:42)
[2019-04-17] MEDS: Carvedilol 3.125 MG TAB PO SCH (08:42)
[2019-04-17] MEDS: Amoxicillin/Potassium Clav 875 MG TAB PO SCH (08:42)
[2019-04-17] MEDS: Apixaban 5 MG TAB PO SCH (08:42)
[2019-04-17] MEDS: Boudreaux's Butt Paste 60 GM TUBE TOP SCH (08:43)
[2019-04-17 12:35] VITALS: BP 110/67; TEMP 98
--- NOTE | 2019-04-17 18:59 | DIS ---
DATE OF ADMISSION: 04/11/2019 DATE OF DISCHARGE: 04/17/2019 DISCHARGE DIAGNOSES: 1. Deep venous thrombosis of the left lower extremity. 2. Decubitus ulcer of the buttocks. 3. Inguinal adenopathy, suspected lymphoma. 4. Sepsis secondary to #2, resolving. 5. Diabetes mellitus type 2, stable. 6. Ischemic cardiomyopathy with ejection fraction of 20% to 25%. 7. Deconditioning. 8. Severe depression. CONSULTATIONS: 1. Palliative Care Service. 2. Dr. Quinn with General Surgery Service. PERTINENT LAB AND X-RAY FINDINGS: Creatinine ranged between 0.97 to 1.32, sodium ranged between 126 to 135, lactic acid level ranged between 2.4 to 4.8. CBC showed a white blood cell count ranging between 12.8 to 14.8, hemoglobin ranged between 11.6 to 13.8. Blood cultures x2 dated on 04/11/2019 showed no growth at 5 days. Urine culture dated on 04/11/2019 showed greater than 100,000 colonies of mixed skin remi. Portable chest x-ray dated on 04/11/2019 showed no acute cardiopulmonary process. Venogram of the left lower extremity dated on 04/11/2019 showed deep venous thrombosis of the left lower extremity. Left inguinal lymphadenopathy. CT of the abdomen and pelvis dated on 04/11/2019 showed prominent lymphadenopathy in the circumaortic and retroperitoneal tumor mass extending into the left iliac chain with extension into the left inguinal region. Moderate left hydronephrosis noted with obstructive left-sided uropathy. 2D transthoracic echocardiogram dated on 04/12/2019 showed ejection fraction of 20% to 25%. Mild left atrial enlargement. Pruu-vw-ytmfojot mitral valve regurgitation. Xjeg-dj-jeuurqsm aortic stenosis with valvular area of 1.6 squared centimeters. HOSPITAL COURSE: The patient was initially admitted after presenting with deconditioning with generalized weakness and failure to thrive. The patient underwent extensive evaluation including CT imaging of the abdomen and pelvis showing evidence of tumor mass in the abdominal region with associated adenopathy concerning for lymphoma. The patient was also discovered with left lower extremity deep venous thrombosis and initiated on Eliquis 10 mg b.i.d. The patient underwent evaluation by the General Surgery Service with consideration for a biopsy of the inguinal adenopathy. However, the patient first decided to pursue no further workup and remained do not attempt resuscitation status. The patient continued to state that he would not pursue aggressive workup or medical care and would prefer to rather than continue evaluation for his medical conditions. Due to the patient's wishes, palliative care services were notified and the patient was deemed an appropriate candidate for ongoing skilled care and consideration for hospice. The patient did continue to receive medical treatment during the hospital course with placement of Lui catheter due to left-sided obstructive uropathy. Urine output remained stable, and renal function returned to baseline levels after bladder decompression. The patient also received local wound care for a large decubitus ulceration with turning protocol as well as wound care services. The patient was placed on Augmentin for empiric treatment for his skin breakdown and will continue antibiotic coverage on an outpatient basis. I have examined the patient at the time of discharge and discussed followup instructions. The patient has been approved to transfer to [facility] for further supervised monitoring and consideration for hospice care. DISCHARGE MEDICATIONS: 1. Augmentin 875 mg p.o. b.i.d. x7 days. 2. Eliquis 10 mg p.o. b.i.d. x3 days, followed by 5 mg p.o. b.i.d. 3. Coreg 3.125 mg p.o. b.i.d. 4. [place] 5/325 mg one tablet p.o. q.6 hours p.r.n. pain. 5. Trazodone 50 mg p.o. at bedtime p.r.n. FOLLOWUP: The patient will follow up at [facility] after discharge. CONDITION ON DISCHARGE: Fair. ACTIVITY: Ad jennifer with rolling walker with standby assistance. High fall risk precautions. DIET: Regular as tolerated. Ensure t.i.d. with meals. CODE STATUS: Do not attempt resuscitation. SPECIAL INSTRUCTIONS: Recommend evaluation by Hospice Services after discharge. DISPOSITION: Discharged to [facility] on 04/17/2019. TIME SPENT: Total time preparing and coordinating discharge, 35 minutes. Job ID: [id number]
[2019-04-21] MEDS ORDERED: Apixaban 5 MG TAB PO SCH (09:00)
== END 2019-04-17 16:15 | DRG 871 ==
LOC: ERS 13:33 → 2NO 18:28
PROVIDERS: ADMIT Internal Medicine; ATTEND Internal Medicine
PROC: 0T9B70Z Drainage of Bladder with Drainage Device, Via Natural or Artificial Opening (ICD-10-PCS; principal; 2019-04-11)
DX: A41.9 Sepsis, unspecified organism (principal); I21.A1 Myocardial infarction type 2; E87.1 Hypo-osmolality and hyponatremia; I82.412 Acute embolism and thrombosis of left femoral vein; I82.432 Acute embolism and thrombosis of left popliteal vein; N17.9 Acute kidney failure, unspecified; I50.20 Unspecified systolic (congestive) heart failure; I13.0 Hypertensive heart and chronic kidney disease with heart failure and stage 1 through stage 4 chronic kidney disease, or unspecified chronic kidney disease; Z66 Do not resuscitate; I25.10 Atherosclerotic heart disease of native coronary artery without angina pectoris; R59.0 Localized enlarged lymph nodes; N13.9 Obstructive and reflux uropathy, unspecified; F32.9 Major depressive disorder, single episode, unspecified; K59.00 Constipation, unspecified; R19.00 Intra-abdominal and pelvic swelling, mass and lump, unspecified site; L89.322 Pressure ulcer of left buttock, stage 2; L89.312 Pressure ulcer of right buttock, stage 2; Z51.5 Encounter for palliative care; Z88.8 Allergy status to other drugs, medicaments and biological substances; I25.5 Ischemic cardiomyopathy; N18.9 Chronic kidney disease, unspecified; Z95.1 Presence of aortocoronary bypass graft; L08.9 Local infection of the skin and subcutaneous tissue, unspecified; E11.22 Type 2 diabetes mellitus with diabetic chronic kidney disease
CPT/HCPCS: 36415; 36416; 71045; 74177; 80048; 80053; 80202; 81003; 81015; 82550; 82553; 82565; 83605; 84484; 85014; 85018; 85025; 85049; 87040; 87086; 93005; 93306; 93970; 96365; 96366; 96367; 96372; J1650; J2405; J2543; J3370; J3490; J7050; Q0162; Q9966

== ENCOUNTER 2019-04-17 22:17 | Emergency (ER) | payer MEDICARE ==
--- NOTE | 2019-04-17 23:36 | RAD ---
EXAM: Retrograde urethrogram HISTORY: Blood per penile meatus after pulling a Lui catheter out with the balloon up COMPARISON: None FINDINGS: Contrast is seen in the penile urethra. This contrast was unable to be passed through the p rosthetic urethra into the urinary bladder. There appears to be leakage of the contrast from the urethra into venous structures in the lower pelvis. IMPRESSION: Urethral injury with inability to pass contrast into the urinary bladder.
[2019-04-18] MEDS ORDERED: Lidocaine 2% 11 ML SYR TOP SCH (00:15)
[2019-04-18 01:01] LABS: #Basophils 0.3 thou/uL (0.0-0.2); #Lymphocytes 2.4 thou/uL (1.20-3.40); #Monocytes 0.9 thou/uL (0.11-0.59); #Neutrophils 8.5 thou/uL (1.40-6.50); %Basophils 2.7 % (0.0-1.0); %Eosinophils 0.1 % (0.0-10.0); %Lymphocytes 19.9 % (21.0-51.0); %Monocytes 7.4 % (0.0-10.0); %Neutrophils 69.9 % (42.0-75.0); Hemoglobin 12.2 g/dL (14.0-18.0); Mean Corpuscular HGB CONC 37.5 g/dL (32.0-36.0); Mean Corpuscular Hemoglobin 30.4 pg (27.0-31.0); Mean Platelet Volume 6.7 fL (7.4-10.4); Platelet Count 366 thou/uL (130-400); RBC Distribution Width 16.5 % (11.5-14.5); Red Blood Cell (RBC) Count 4.01 mill/uL (4.70-6.10); White Blood Cell (WBC) Count 12.2 thou/uL (4.8-10.8)
[2019-04-18 01:20] LABS: ALT (SGPT) 14 U/L (8-55); AST (SGOT) 17 U/L (5-34); Alkaline Phosphatase 125 U/L (40-150); Anion Gap 13 mmol/L (10-20); BUN (Urea Nitrogen) 21 mg/dL (8.4-25.7); Bilirubin, Total 0.5 mg/dL (0.2-1.2); Calc. Creatinine Clearance 0 mL/min (70-130); Calcium 8.9 mg/dL (7.8-10.44); Carbon Dioxide 24 mmol/L (23-31); Chloride 99 mmol/L (98-107); Estimated GFR-MDRD 69; Globulin 3.3 g/dL (2.4-3.5); Glucose 175 mg/dL (83-110); Potassium 4.7 mmol/L (3.5-5.1); Protein, Total 6.3 g/dL (5.8-8.1); Sodium 131 mmol/L (136-145)
== END 2019-04-18 02:22 | disposition home or self-care (01) ==
LOC: ERS 22:17
DX: S37.30XA Unspecified injury of urethra, initial encounter (principal); E11.9 Type 2 diabetes mellitus without complications; X50.9XXA Other and unspecified overexertion or strenuous movements or postures, initial encounter
CPT/HCPCS: 36415; 51610; 51798; 74450; 80053; 85025